=== PATIENT | female | born 1960 | race African-American/Black ===

== ENCOUNTER 2024-03-19 07:12 | Observation (INO) | payer MEDICAID, SELFPAY ==
--- NOTE | 2024-02-22 08:42 | EKG12_ITS ---
Test Reason : PRE OP Blood Pressure : / mmHG Vent. Rate : 076 BPM Atrial Rate : 076 BPM P-R Int : 180 ms QRS Dur : 078 ms QT Int : 382 ms P-R-T Axes : 054 028 050 degrees QTc Int : 429 ms Normal sinus rhythm Normal ECG Confirmed by GASTON CHOW, VIKI ([id number]), assistant film editor THOMPSON KELLEY ([id number]) on 02/22/2024 1:30:32 PM Referred By: Cholo Napier Confirmed By:VIKI FELDMAN MD
[2024-02-22 09:49] LABS: Absolute Lymphocyte Count 1.91 X10^3/uL (0.83-4.51); Absolute Neutrophil Count 4.3 X10^3/uL (2.0-7.7); Basophil# 0.01 X10^3/uL; Basophil% 0.2 % (0-1); Eosinophil# 0.04 X10^3/uL; Eosinophils% 0.6 % (0-5); Hematocrit 38.3 % (37-47); Hemoglobin 11.8 g/dL (12.0-15.0); Lymphocyte # 1.91 X10^3/ul (0.83-4.51); Lymphocyte % 28.8 % (19-41); Mean Corp Hgb Conc 30.8 g/dL (32-36); Mean Corpuscular Hgb 25.8 pg (27.0-32.0); Mean Corpuscular Volume 83.6 fL (81-99); Mean Platelet Vol. 7.9 fl (6.2-12.0); Monocyte# 0.33 X10^3/uL; NRBC Flagged by Analyzer 0 % (0-5); Neutrophil # 4.31 X10^3/uL (2.7-7.7); Neutrophil % 64.9 % (47-70); Platelet Count 305 K/mm3 (150-450); RBC Distribution Width CV 13.4 % (11.6-14.6); RBC Distribution Width SD 40.8 fl (35.1-43.9); Red Blood Count 4.58 M/mm3 (4.2-5.4); White Blood Count 6.6 K/mm3 (4.4-11.0)
[2024-02-22 10:26] LABS: Albumin, Serum 3.5 g/dL (3.2-5.0); Anion Gap 6 (5-15); BUN 11 mg/dL (7-18); BUN/Creat Ratio 13.5 RATIO (10-20); Calcium,Total 9.3 mg/dL (8.5-10.1); Chloride 105 mmol/L (98-107); Creatinine, Serum 0.81 mg/dL (0.55-1.02); EST Glomerular Filtration Rate 76 mL/min (>60); Est Glom Filt Rate - Afr Amer 92 mL/min (>60); Glucose 92 mg/dL (74-106); Potassium 3.7 mmol/L (3.5-5.1); Sodium Level 136 mmol/L (136-145)
[2024-02-22 10:30] LABS: Hemoglobin A1c 5.7 % (3.8-5.6)
[2024-02-22 15:45] LABS: Magnesium 1.7 mg/dL (1.6-2.6); Thyroid Stim Hormone (TSH) 2.22 uIU/mL (0.358-3.74)
--- NOTE | 2024-03-13 15:14 | HP.PCM_ITS ---
History and Physical History and Physical Patient Name: Maame Munson? : 1960From:? WILMER SALAZAR PA-C DATE OF PRE-OPERATIVE EXAM: 03/12/2024 DATE OF SURGERY:? 03/19/2024 SCHEDULED PROCEDURE:? Direct anterior left total hip arthroplasty HISTORY OF PRESENT ILLNESS: Preoperative history and physical exam was performed on March 12, 2024.? This is a 63-year-old female who has been having ongoing pain for the past couple years with her right hip.? The pain has been progressively been getting worse.? Pain can reach 8/10 with activities.? Her pain has been constant and aching.? Pain is increased with going up and down stairs, sitting, walking.? She has difficulty with activities of daily living including getting dressed, housework, shopping and leisure activities.? Pain does awaken her at night.? She does have start up pain.? Patient states she is unable to walk more than 50 yards without having significant pain.? Patient has been using a cane for ambulatory assistance for the past 7 months.? Patient has attempted conservative measures including physical therapy which worsened her pain.? She is also attempted previous cortical steroid injections for the left hip without relief.? Patient has used [id number] medications including Advil, Tylenol and muscle relaxers with minimal relief.? After failing conservative measures and discussing all treatment options with Dr. Cholo Napier, the patient does wish to proceed with a direct anterior right total hip arthroplasty.? Patient has obtain surgical clearance from the primary care provider Jena Johnson.? Patient denies past history of DVT or pulmonary embolism.? Patient has medical history pertinent for gastroesophageal reflux disease, hypertension, thyroid disease, prediabetes with recent A1c 5.7, asthma, vitamin D deficiency.? Patient denies any recent chest pain, shortened breath, fevers chills or recent infections.? Patient with recent lab work did reveal anemia and she was started on our anemia protocol with ferrous sulfate and folic acid. ? REVIEW OF SYSTEMS: Review Of Systems: Constitutional: Denies change in appetite, fever and weight change. Cardiovasular: Denies chest pain, heart murmur and irregular heartbeat. Respiratory: Denies cough, pneumonia, shortness of breath, tuberculosis and wheezing. Gastrointestinal: Denies constipation, diarrhea, heartburn, nausea, rectal itching, bloody stools and vomiting. Genitourinary: Denies female genital problems. Denies urinary symptoms. Musculoskeletal: Denies leg swelling, pain, trouble walking and weakness. Skin: Denies Raynaud's, history of shingles and tattoo. Neurological: Denies ambulatory dysfunction, dizziness, numbness/tingling and tremor. Psychiatric: Denies anxiety, insomnia and stress. Hematologic/Lymphatic: Denies anemia, bleeding/bruising tendency and past transfusion. Reviewed, no changes. PAST MEDICAL HISTORY: Advance Care Plan: No Advance Directives Effective Date: 11/10/2023 Past Medical History: Medical Problems: Acid Reflux, High Blood Pressure, Thyroid Disease Diabetes - PRE Asthma, Vitamin D Deficiency Accidents: None Surgical Hx: Hysterectomy - (1998) Hip Replacement RT - (03/19/2024) SAW Anesthesia Complications: None Assistive Devices: Cane, Glasses Reviewed and updated. SOCIAL HISTORY: Social History: Marital: Single.Occupation: Unemployed.Work Status: Not Working Currently.Hand Dominance: Right-handed. Personal Habits:? Cigarette Use: Never Smoked Cigarettes.Smokeless Tobacco: Never Used Smokeless Tobacco.E-Cigarette Use: Never used.Alcohol: Denies use.Dr ug Use: Denies Use.Enjoy Exercising: Never Exercises. Reviewed, no changes. VITALS: Ht: 62 Wt: 228lb 8oz Wt k.648 BMI: 41.8 BP: 128/80 Pulse: 86 Resp: 14 T: 97.8 T: 36.6C Pain Level: 6 O2SatR: 97 ALLERGIES: Latex Percocet Morphine - Rash MEDICATIONS: Aspirin 81 Low Dose 81 mg 1 by mouth every day, Bystolic 10 mg 1 by mouth every day, Trulicity 3 mg/0.5ml once weekly, Levothyroxine Sodium 50 mcg 1 tablet daily, Diltiazem HCL ER 240 mg one capsule daily, Losartan Potassium 100 mg 1 by mouth every day, Metformin HCL ER (Mod) 500 mg 4 capsules daily, Vitamin D 1.25 MG? weekly, Loratadine 10 mg 1 time daily, Omeprazole 40 mg 1 by mouth every day PRE-OP EXAM: General appearance:NORMAL? Other: Eyes: Conjunctivae and lids: NORMAL? Pupils: ERR Ears, Nose, Mouth, and Throat: NORMAL? Other: Inspection of lips, teeth and gums: NORMAL?? Other: Neck: Examination of neck: no masses noted. Respiratory: Assessment of respiratory effort: NORMAL?? Other: ? Auscultation of lungs: clear to auscultation no wheezes, rhonchi or rales. Cardiovascular:? Auscultation of heart: regular rate and rhythm, no murmurs, gallops or rubs. PHYSICAL EXAMINATION: Patient does walk with a antalgic gait.? She is currently using a cane.? Patient's right hip is without erythema or signs of infection.? She has tenderness to palpation of the greater trochanteric region.? Range of motion: Hip flexion 60, internal rotation neutral, external rotation 10.? She has increased pain with all range of motion.? 4/5 hip strength secondary to pain.? Sensation intact to light touch. IMAGING STUDIES: Previous x-rays and CT scan were consistent with joint space narrowing, subchondral sclerosis, osteophyte formation consistent with severe stage IV opna-st-[id number] erosive osteoarthritis.? CT scan was also consistent with numerous subchondral cysts in the femoral head and acetabulum. IMPRESSION: 1.? Severe right hip osteoarthritis 2.? Hypertension 3.? Gastroesophageal reflux disease 4.? Thyroid disease 5.? Prediabetic: A1c 5.7 6.? Asthma 7.? Vitamin D deficiency 8.? Anemia 9.? Morbid obesity with BMI 41.8 PLAN: Dr. Cholo Napier did discuss and review with the patient all treatment options including surgical versus nonsurgical options.? Patient does wish to proceed with the above-stated procedure.? Potential risks, benefits, and complications of the procedure were discussed in detail including but not limited to , infection, nerve and blood vessel damage, persistent pain, numbness, tingling, paresthesias, blood clot, pulmonary embolism, and requirement for possible further surgery.? The patient expressed full understanding and has no further questions for the doctor.? Patient does agree to proceed with the above-stated procedure and has signed the surgery consent form. POST-OP MEDICATION PLAN: Pain Medications:? Postoperative pain medication will be initiated by Dr. Cholo Napier in the hospital.? Patient does have allergy to Percocet and we will use hydrocodone/acetaminophen postoperatively.? I also advised the patient 2 weeks post-operative treatment with doxycycline due to the morbid obesity greater than 40.0.? I advised her on sensitivity to sunlight with this medication and should take appropriate precautions.? I also recommended ndgr-spg-yvuanyt probiotic.? Patient does have a walker that she will bring to the hospital.? She has also continued on our anemia protocol with ferrous sulfate and folic acid. DVT Prophylaxis:? Aspirin 81 mg twice daily for 4 weeks postoperatively.? Denies past history of DVT or pulmonary embolism This dictation was created using voice recognition software. Phonetic and/or grammatical errors may exist. ___? I have re-examined the patient.? There are no clinical changes since date of exam. ___? See progress notes for changes. ___? Dictated on admission Date: ? Time: Signature:
[2024-03-19] VITALS (16 sets, daily range): BP systolic 88–156; BP diastolic 46–90; PULSE 74–94; RESP 14–19; TEMP 36.3–36.6; O2SAT 93–100; BMI 40.7; BMI 40.8
[2024-03-19] MEDS: Acetaminophen 500 MG Tablet 1000 MG PO (06:53)
[2024-03-19] MEDS: Celecoxib 200 MG Capsule 400 MG PO (06:54)
[2024-03-19] MEDS: Gabapentin 600 MG Tablet PO (06:54)
--- NOTE | 2024-03-19 07:04 | PRE.ANES_ITS ---
ASA Classification* ASA Classification ASA Classification: 3 Assessment & Plan Anesthesia* Anesthesia Assessment Anesthesia Assessment: Discussed sedation and/or anesthesia options, risks, benefits, and alternatives with patient/parents/legal guardian/POA. Questions invited. The patient/parents/legal guardian/POA seems to understand and agrees to proceed with anesthesia plan. Reviewed the physical assessment, medical history, allergy history and patient home medications list prior to surgery/procedure/anesthetic and documented any changes. Performed airway and anesthesia risk assessments. Anesthesia Type Anesthesia Type: Spinal Anesthesia Focused Assessment* Temperature: 97.9 F Pulse Rate: 83 Blood Pressure: 129/62 Respiratory Rate: 16 Pulse Ox: 98 Airway Assessment Mouth opens: >3 cm Mallampati Score: II Focused Labs Anesthesia Preop lab: CBC WBC 6.6 K/mm3 (4.4-11.0) 02/22/24 09:10 RBC 4.58 M/mm3 (4.2-5.4) 02/22/24 09:10 Hgb 11.8 g/dL (12.0-15.0) L 02/22/24 09:10 Hct 38.3 % (37-47) 02/22/24 09:10 Plt Count 305 K/mm3 (150-450) 02/22/24 09:10 CHEMISTRY Potassium 3.7 mmol/L (3.5-5.1) 02/22/24 09:10 Sodium 136 mmol/L (136-145) 02/22/24 09:10 Magnesium 1.7 mg/dL (1.6-2.6) 02/22/24 09:10 BUN 11 mg/dL (7-18) 02/22/24 09:10 Creatinine 0.81 mg/dL (0.55-1.02) 02/22/24 09:10 Glucose 92 mg/dL (74-106) 02/22/24 09:10 TSH 2.22 uIU/mL (0.358-3.74) 02/22/24 09:10 COAG Pre-Assessment Diagnosis/Proposed Procedure Planned Operative Procedure(s): DIRECT ANTERIOR RIGHT TOTAL HIP ARTHROPLASTY Anesthesia History Anesthesia History - learning support specialist: Anesthesia History - learning support specialist Hx Hospitalization No 02/21/24 10:31 Any Problems With Anesthesia No 02/21/24 10:31 Cholinesterase deficiency No 02/21/24 10:31 You/Your Family Experience No 02/21/24 10:31 fever (hyperthermia) with Relationship Recent Exposure to Contagious No 03/19/24 06:47 Disease Does patient have nerve No 02/21/24 10:31 stimulator Patient instructed to have device shut off --Does patient have Pacemaker No 03/19/24 06:50 or ICD? When Was Last Pacemaker Check QUESTION #4 FULL TEXT: You/Your Family Experience fever (hyperthermia) with Anesthesia Last Oral Intake Last Oral intake: Last Oral Intake NPO since 04:30 03/19/24 06:50 Meds taken in AM with sips of Yes 03/19/24 06:50 water? Meds patient instructed to take am of surgery PONV PONV - learning support specialist: PONV - learning support specialist Female Yes 02/21/24 10:31 HX of Motion Sickness No 02/21/24 10:31 HX of N/V After Surgery No 02/21/24 10:31 Non-Smoker Yes 02/21/24 10:31 Duration of Surgery greater Yes 02/21/24 10:31 than 60 minutes Number of Risk Factors 3 02/21/24 10:31 PONV Score Moderate Risk 02/21/24 10:31 Height & Weight Height & Weight: Anesthesia: Height & Weight Height 5 ft 3 in 03/19/24 06:50 Weight: 104.417 kg 03/19/24 06:50 Body Mass Index (BMI) 40.7 03/19/24 06:50 Respiratory Assessment Respiratory Assessment - learning support specialist: Respiratory Tract Infection Hx - learning support specialist Hx Respiratory Tract Infection No 02/21/24 10:31 STOP Sleep Apnea STOP Sleep Apnea - learning support specialist: STOP Sleep Apnea - learning support specialist Hx Hypertension Yes: CONTROLLED WITH MED 02/21/24 10:31 Hx Sleep Apnea Yes 02/21/24 10:31 CPAP Yes: NON COMPLIANT 02/21/24 10:31 BIPAP No 02/21/24 10:31 Do you snore loudly (louder than talking or can be heard Do you often feel tired/ fatigued/ sleepy during daytime? Has anyone observed you stop breathing during sleep? STOP Results Positive 02/21/24 10:31 QUESTION #5 FULL TEXT : Do you snore loudly (louder than talking or can be heard through closed doors)? Tobacco Use History Tobacco Use History - learning support specialist: Tobacco Use History - learning support specialist Tobacco Use Smoking Status Never smoker 02/21/24 10:31 Hx Tobacco Use No 02/21/24 10:31 Years Smoking Packs Smoked per Day Smoking Cessation Date was within the last 15 years Hx Smoking Cessation Date Hx Smoking Cessation Counseling Hematologic Medial History Hematologic Hx - learning support specialist: Hematologic Medical Hx - revenue manager Hx of Blood Transfusion No 02/21/24 10:31 Hx of Transfusion in last 3 No 02/21/24 10:31 Months Date of Last Transfusion (if within last 3 months) Ever experience any problems No 02/21/24 10:31 with transfusion(s)? Specify any problems Hx of Preganancy in last 3 N/A 02/21/24 10:31 Months Nurse Filling Out Transfusion NBUCHER 02/21/24 10:31 & Questions: Date: 02/21/24 02/21/24 10:31 Time: 10:33 02/21/24 10:31 Patient unable to answer at this time (ie. confused, unrespo /Reproduction History /Reproductive History - learning support specialist: /Reproductive Hx- learning support specialist Hx Now No 02/21/24 10:31 Gestational Age (in weeks): EDC: Hx Hx Para Hx Section SAB No 02/21/24 10:31 Active Medications Active Medications: Current Medications Generic Name Dose Route Start Last Admin Trade Name Freq PRN Reason Stop Dose Admin Acetaminophen 1,000 mg 03/19/24 08:00 03/19/24 06:53 Acetaminophen 500 Mg Tablet PO 03/19/24 08:01 1,000 mg X1 ONE Administration Celecoxib 400 mg 03/19/24 08:00 03/19/24 06:54 Celecoxib 200 Mg Capsule PO 03/19/24 08:01 400 mg X1 ONE Administration Sodium Chloride 78.4 ml/ ml 03/19/24 08:00 Ropivacaine 200 mg/ IV 03/19/24 08:01 Epinephrine HCl 0.6 mg/ X1 ONE Ketorolac Tromethamine 30 mg Dexamethasone Sodium Phosphate 10 mg 03/19/24 08:00 Dexamethasone 10 Mg/Ml Vial IV 03/19/24 08:01 X1 ONE Gabapentin 600 mg 03/19/24 08:00 03/19/24 06:54 Gabapentin 600 Mg Tablet PO 03/19/24 08:01 600 mg X1 ONE Administration Lactated Ringer's 1,000 mls @ 999 mls/hr 03/19/24 08:00 IV 03/19/24 09:00 .Q1H1M PEDRO Cefazolin Sodium 2 gm/ Sodium 110 mls @ 150 mls/hr 03/19/24 08:00 Chloride IV 03/19/24 08:43 PREOP ONE Tranexamic Acid 1,000 mg/ 110 mls @ 660 mls/hr 03/19/24 08:00 Sodium Chloride IV 03/19/24 08:09 X1 ONE Tranexamic Acid 1,000 mg/ 110 mls @ 660 mls/hr 03/19/24 08:00 Sodium Chloride IV 03/19/24 08:09 X1 ONE Lactated Ringer's 1,000 mls @ 999 mls/hr 03/19/24 08:00 IV 03/19/24 09:00 .Q1H1M PEDRO Lidocaine HCl/Dextrose 2,000 mg in 250 mls @ 31.2 mls/hr 03/19/24 08:00 Lidocaine 2 Gm/250 Ml IV .Q8H1M PEDRO Magnesium Sulfate 2 gm/ 104 mls @ 208 mls/hr 03/19/24 08:00 Dextrose IV 03/19/24 08:29 X1 ONE Insulin Human Lispro 1 - 6 unit 03/19/24 08:00 Insulin Lispro 100 Unit/Ml Insuln.Pen SC Q4H PRN PRN BG>/= 180, SEE PROTOCOL Protocol PFSH Medical History Wears glasses Diabetes Thyroid disease Ambulates with cane Arthritis History of hiatal hernia Dietary restriction CPAP (continuous positive airway pressure) dependence Sleep apnea Asthma GERD (gastroesophageal reflux disease) Non-smoker History of stress test Home Medications ?Medication ?Instructions ?Recorded ?Last Taken ?Type aspirin 81 mg capsule 81 mg PO DAILY 02/21/24 02/13/24 History diltiazem HCl 120 mg capsule,24 240 mg PO QDAY 02/21/24 03/19/24 04:30 History hr,extended release dulaglutide 1.5 mg/0.5 mL 1.5 mg subcut WE DIABETES 02/21/24 03/14/24 History subcutaneous pen injector ([facility]) ergocalciferol (vitamin D2) 1,250 1,250 mcg PO TU 02/21/24 03/13/24 History mcg (50,000 unit) capsule (Vitamin D2) levothyroxine 50 mcg capsule 50 mcg PO DAILY 02/21/24 03/19/24 04:30 History loratadine 10 mg tablet 10 mg PO DAILY 02/21/24 03/18/24 10:00 History losartan 100 mg tablet 100 mg PO DAILY 02/21/24 03/19/24 04:30 History metformin 500 mg tablet,extended 2,000 mg PO DAILY 02/21/24 03/18/24 10:00 History release 24 hr montelukast 10 mg tablet 10 mg PO QHS 02/21/24 03/18/24 History nebivolol 10 mg tablet (Bystolic) 10 mg PO DAILY 02/21/24 03/19/24 04:30 History omeprazole 40 mg capsule,delayed 40 mg PO DAILY 02/21/24 03/19/24 04:30 History release Allergy/AdvReac Type Severity Reaction Status Date / Time latex Allergy Intermediate Rash Verified 03/19/24 06:43 morphine Allergy Intermediate Rash Verified 03/19/24 06:43 oxycodone (From Percocet) Allergy Intermediate RASH Verified 02/21/24 10:20 Surgical History History of esophagogastroduodenoscopy (EGD) History of colonoscopy History of tonsillectomy (~1966) History of cholecystectomy (~1989) History of hysterectomy (~1998) Social History Smoking Status: Never smoker Review of Systems (Anesthesia) ROS Narrative System reviewed and no additional complaints, except as documented.
[2024-03-19] MEDS: Lactated Ringers 1,000 ML 999 ML IV ×2 (07:07→10:34)
[2024-03-19] MEDS: Magnesium 2 GM for ERAS IV (07:08)
[2024-03-19] MEDS: Lactated Ringers 1,000 ML 15 ML IV (07:10)
[2024-03-19 07:46] LABS: Bedside Glucose 145 mg/dL (74-106)
[2024-03-19] MEDS: Cefazolin 2 GM in 0.9% Normal Saline (100mL Bag) 100 ML IV (08:00)
--- NOTE | 2024-03-19 08:00 | FEM._PTH ---
PATIENT: JOSE DENG LOC: MS3 U#:[id number] AGE/SX: 63/F ROOM: WA316 RE03/19/[address]: Dr. Cholo Napier MD : 1960 BED: 1 DIS: 03/20/2024 SPEC #: [id number] RECD: 03/19/24 10:15 STATUS: NOMAN BENITO #: [id number] SLIME: 03/19/24 08:[address]: Cholo Napier DEPT: SURGICAL PATHOLOGY RECD BY: Jeromy Christie ENTERED: 03/19/24 11:15 SP TYPE: FEM HEAD OTHR DR: MD Jena Jimenez, AERODYNAMICIST-C Tissues: Hip, NOS Procedures: Decalcification bone/plaque Surgery Specimen Level IV HEADER OPERATION: ERAS, direct anterior total hip arthroplasty PRE-OP DIAGNOSIS: Severe right hip osteoarthritis TISSUE SUBMITTED: Right femoral head bone and tissue MICROSCOPIC DIAGNOSIS Right hip bone and soft tissue, total hip replacement/resection: Femoral head with degenerative osteoarthritic changes. Fragments of dense fibroconnective tissue and fibroadipose tissue. MIL: 03/22/2024 MICROSCOPIC DESCRIPTION Slides are reviewed. GROSS DESCRIPTION Received is one container labeled with the patient's name and designated bone and soft tissue right hip. The femoral head measures 4.0 x 4.0 x 4.0 cm. Also present in the container is a piece of bone consistent with portion of femoral neck measuring 4.5 x 3.0 x 1.0cm. The articular surface displays prominent osteophyte formation, eburnation and bone erosion. Also present in the specimen container are multiple irregular fragments of bone reamings and pink-yellow soft tissue measuring in aggregate 9.0 x 9.0 x 2.0 cm. Life Underwriter sections are submitted in two cassettes as follows: 1 - soft tissue, 2 - femoral head after decalcification. MIL/ 03/19/2024 TC:5 CPT: 00984, 12835
[2024-03-19] MEDS: TXA 1000mg in NS100 100ml (IVPB at Incision) 660 MG IV (08:19)
[2024-03-19] MEDS: dexAMETHasone 10 MG/ML Vial IV (08:22)
--- NOTE | 2024-03-19 08:50 | RAD_ITS ---
HISTORY: PAIN. TECHNIQUE: 3 spot images. COMPARISON: CR same day. FINDINGS: OSSEOUS STRUCTURES: Right hip arthroplasty identified. FLUOROSCOPY TIME: 7.2 seconds. RADIATION DOSE: 1.05 mGy. RAD/Hip 1 view with Pelvis IMPRESSION: Image guidance for right hip arthroplasty. Electronically Signed: Maryann Kaur MD at 8:40 EDT ,
[2024-03-19] MEDS: Joint Pain Solution (NO MORPHINE) 100 ML IV (09:05)
--- NOTE | 2024-03-19 09:10 | PCM.OPRPT ---
Report of Operation Date of Procedure: 03/19/24 Pre-Operative Diagnosis: Right hip primary osteoarthritis Post-Operative Diagnosis: Right hip primary osteoarthritis Surgery/Procedure Performed:: Right minimally invasive direct anterior total hip replacement Description of Surgical Findings:: Stable hip with equal leg length Surgeon: Cholo Napier senior qa tester: Zelalem Crane Type of Anesthesia: Spinal Anesthesiologist: Eric Jacob Special Medications: 2 g Ancef, 1 g TXA at incision, 1 g TXA closure, 10 mg Decadron, joint cocktail (5 mg Duramorph, 30 mL of 0.5% Ropivicaine, 1000 units of epinephrine, 30 mg of Toradol) Specimen's removed: Bony cuts Estimated Blood Loss (mL): 200 Fluids Replaced: 1200 ml Description of Procedure: Components used: 1. Insignia Ayush femoral stem size 3 HO 2. Corning trident 2 acetabular shell size 48 mm 3. Ayush X3 polyethylene D 4. Corning Biolox delta 36mm, -2.5mm femoral head Brief history operative indications: 63 yo f who failed conservative measures for their hip osteoarthritis. X-rays were consistent with osteoarthritis including joint space narrowing, osteophyte formation and subchondral cysts. Total hip replacement was discussed with the patient with risks and benefits including but not limited to blood loss, DVTs, PEs, neurovascular damage, dislocation, general risks of anesthesia including loss of life. Patient demonstrated an understanding medical clearance is obtained the patient was consented for surgery. Procedure: On the date of procedure the patient's right hip was marked in the preoperative area. Patient was then taken back to the operating room where anesthesia assumed control of the C-spine and airway and administered anesthetic. Patient was transferred to the operating table and placed in the supine position. The hips were placed at the break of the bed and a sacral bump was placed. The right lower extremity was then prepped out in a sterile fashion using chlorhexidine while the surgeon scrubbed. The PA was vital in the positioning of the patient. Upon reentering the room the right lower extremity was draped in the standard orthopedic fashion and the incision was marked. A timeout was called and everyone agreed upon the side, the site, the procedure be performed, antibody given, and patient's identity. At this time incision was made through skin, subcutaneous tissue, and fat down to fascia. The fascia was then incised and the TFL was retracted laterally. A retractor was placed on the lateral border of the femoral neck. Attention was directed to the inferior portion of the approach and all crossing vessels were identified and appropriately coagulated. A retractor was then placed on the medial portion of the femoral neck. The anterior capsule was then cleared of all soft tissue and then H shaped capsulotomy was made. The retractors were then placed inside the capsule. The femoral neck was identified and a cleanup cut was made. At this time a power corkscrew was used to remove the femoral head. Attention was then turned toward the acetabulum where the soft tissues were appropriately retracted and the acetabulum was sequentially reamed to 48 mm. A 48 mm cup was then selected and impacted into place. Acetabular liner was impacted into place and locking mechanism was verified. The position of the acetabular cup was then verified under live fluoroscopy. Attention was then turned to the femur. Soft tissue releases on the medial and lateral femoral neck were appropriately done, the leg was externally rotated and lateralized. A Hamm retractor was placed medially and proximally to the greater trochanter this allowed appropriate visualization and exposure of the femoral canal. Rongeour was then used to remove excess lateral bone. A canal finder and entry broach were used to open the proximal canal. Once we verified we were down the femoral canal we subsequently broached up to a size 3 femur. The appropriate neck was placed in the previously selected head was trialed with a -2.5 mm neck. Traction was pulled and the hip was reduced with internal rotation. Once it was appropriately reduced and stability was checked. There was minimal shuck, equal leg lengths and appropriate stability with hyperextension and external rotation as well as with 90? flexion and internal rotation. Fluoroscopy was then also used to verify the position of the components and leg lengths using the contralateral side for comparison. The trial components were then dislocated the proximal femur was again exposed and the components were removed from the wound. The final components were verified and opened. The wound was copiously irrigated out with normal saline. The acetabulum was checked for any residual debris. The final components were placed and impacted. Traction and internal rotation were again used to reduce the hip. After adequate reduction the hip remained stable with appropriate leg lengths. The final components were once again checked with live fluoroscopy and were found to be satisfactory. The wound was then copiously irrigated with normal saline once more, and hemostasis was obtained. Closure was then done using #1 Vicryl runner to close the fascia. A 2-0 vicryl interuppted sutures were used to close the subcutaneous skin. A 3-0 Monocryl and Steri-Strips were used for final skin closure. A Silverlon dressing was placed. Patient was awakened by anesthesia and transferred to the [facility]. Patient was then transferred to the PACU for recovery. During the course of the procedure the physician division traffic superintendent (PE) played a vital role. Their intimate knowledge of my steps in the procedure aided in safe and expedient completion of the procedure. The PE played a vital rolls in positioning particularly in obtaining the appropriate positioning of the sacral bump. The PE was also vital in the retraction of soft tissues during the exposure and especially the femoral work as this is a vital part of the procedure to prevent complications and fractures. The PE was also vital and protecting soft tissues during times of bony cuts and reaming. He also played a vital role in closure with my direct supervision. The PE was also important during reduction and dislocation of the joint and trials intraoperatively. Postoperative plan: Patient will get 24 hours postop antibiotics. Patient will get in-house physical therapy and will be weight-bear as tolerated. Patient will follow up in office in 2 weeks for a wound check and x-rays. Aspirin 81 mg twice daily. Patient be placed on doxycycline extended postop antibiotics for 2 weeks as she has a BMI greater than 40. Complications No intraoperative complications Admit VTE Documentation VTE Present on Admission: No VTE Mechan Device Prophylaxis: SCD's and Thigh High ESTEFANIA Hose VTE Pharm Prophylaxis ordered?: Yes
[2024-03-19] MEDS: TXA 1000mg in NS100 100ml (IVPB at Closure) 660 MG IV (09:11)
--- NOTE | 2024-03-19 10:02 | RAD_ITS ---
STUDY: X-RAY - PELVIS AND RIGHT HIP REASON FOR EXAM: Female, 63 years old. Post Op -- AP both hips on single ashley/lateral of op hip PACU TECHNIQUE: 2 views of the pelvis and hip. COMPARISON: None. FINDINGS: The patient is status post right total hip replacement. There is good alignment. Postoperative soft tissue changes are seen. RAD/Hip Min 2 Views (Portable) IMPRESSION: Status post right total hip replacement. There is good alignment. Postoperative soft tissue changes. Electronically Signed: Rigo Mueller MD at 10:36 EDT ,
--- NOTE | 2024-03-19 10:54 | PCM.POST.ANE ---
Anesthesia: Postop Eval I Current Vital Signs Temperature: 97.3 F Pulse Rate: 78 Blood Pressure: 93/80 Respiratory Rate: 16 Pulse Ox: 93 Oxygen Delivery Method: Room Air Assessment Airway patent: Yes Spontaneous unlabored respirations: Yes Mental status: Awake and Calm nausea: No Vomiting: No Anesthesia Complication: No Fluid Hydration Crystalloid volume administer (ml): 1,800 Total IV fluid infused: 1,800 Progress Note Anesthesia document: Postop Eval 1 completed: Yes
--- NOTE | 2024-03-19 10:56 | POSTOPAN2_ITS ---
Anesthesia Postop Eval I Sum Postop Eval Completion status Anesthesia document: Postop Eval 1 completed: Yes Anesthesia Postop Eval I Summary Anesthesia Postop Eval I Summary: Anesthesia Postop Eval I: Assessment Summary Airway patent Yes 03/19/24 10:55 REHABILITATION SERVICES DIRECTOR.MDOT Spontaneous unlabored Yes 03/19/24 10:55 REHABILITATION SERVICES DIRECTOR.MDOT respirations Mental status Awake,Calm 03/19/24 10:55 REHABILITATION SERVICES DIRECTOR.MDOT nausea No 03/19/24 10:55 REHABILITATION SERVICES DIRECTOR.MDOT Vomiting No 03/19/24 10:55 REHABILITATION SERVICES DIRECTOR.MDOT Anesthesia Postop Eval I: Fluid Summary Crystalloid volume administer 1,800 03/19/24 10:55 REHABILITATION SERVICES DIRECTOR.MDOT (ml) Colloids volume administered ( ml) Blood Product volume administered (ml) Total IV fluid infused 1,800 03/19/24 10:55 REHABILITATION SERVICES DIRECTOR.MDOT Anesthesia Postop Eval I: Summary Notes Anesthesia Complication No 03/19/24 10:55 REHABILITATION SERVICES DIRECTOR.MDOT Anesthesia Complication Comment: Post-operative progress note Anesthesia: Postop Eval II Evaluation Mental status: Awake and Calm Pain Level: 1 nausea: No Vomiting: No Complications Anesthesia Complication: No
--- NOTE | 2024-03-19 10:56 | PCM.POSTANE2 ---
Anesthesia Postop Eval I Sum Postop Eval Completion status Anesthesia document: Postop Eval 1 completed: Yes Anesthesia Postop Eval I Summary Anesthesia Postop Eval I Summary: Anesthesia Postop Eval I: Assessment Summary Airway patent Yes 03/19/24 10:55 GIMP [email or web address] Spontaneous unlabored Yes 03/19/24 10:55 GIMP [email or web address] respirations Mental status Awake,Calm 03/19/24 10:55 GIMP [email or web address] nausea No 03/19/24 10:55 GIMP [email or web address].MDOT Vomiting No 03/19/24 10:55 GIMP [email or web address].MDOT Anesthesia Postop Eval I: Fluid Summary Crystalloid volume administer 1,800 03/19/24 10:55 GIMP [email or web address].MDOT (ml) Colloids volume administered ( ml) Blood Product volume administered (ml) Total IV fluid infused 1,800 03/19/24 10:55 GIMP [email or web address].MDOT Anesthesia Postop Eval I: Summary Notes Anesthesia Complication No 03/19/24 10:55 GIMP [email or web address].MDOT Anesthesia Complication Comment: Post-operative progress note Anesthesia: Postop Eval II Evaluation Mental status: Awake and Calm Pain Level: 1 nausea: No Vomiting: No Complications Anesthesia Complication: No
[2024-03-19] MEDS: Senna/Docusate Sodium 1 Tablet 2 TABLET PO ×2 (12:22→21:26)
[2024-03-19] MEDS: Doxycycline 100 MG CAPSULE PO ×2 (12:22→21:31)
[2024-03-19] MEDS: Loratadine 10 MG Tablet PO (12:22)
[2024-03-19] MEDS: Ensure Surgery 237 ML LIQUID PO ×2 (12:23→16:44)
[2024-03-19] MEDS: Aspirin 81 MG TAB.CHEW PO ×2 (12:23→21:26)
--- NOTE | 2024-03-19 14:30 | PN.HOSP_ITS ---
Reason for Visit Reason for Visit: Diagnoses Encounter for other preprocedural examination (03/19/24) Subjective Subjective Consult requested by Dr. Napier for postoperative medical management. Feeling fine postoperative. Objective Data Objective Data Vital Signs: Vital Signs Temp Pulse Resp BP Pulse Ox O2 Del Method O2 Flow Rate 36.6 C 91 18 135/77 H 97 Room Air 4 03/19/24 13:12 03/19/24 13:12 03/19/24 13:12 03/19/24 13:12 03/19/24 13:12 03/19/24 13:12 03/19/24 11:49 Oxygen Flow Rate (L/min) 4 Oxygen Delivery Method Room Air Weight: 104.417 kg Body Mass Index (BMI) 40.8 Intake & Output: Intake and Output for Last 24 Hours 03/17/24 03/18/24 03/19/24 23:59 23:59 23:59 Intake Total 3434 / 3434 Balance 3434 / 3434 Lab / Micro Data 02/22/24 09:10 02/22/24 09:10 Labs: Laboratory Results - last 24 hr 03/19/24 06:41: POC Glucose 145 H Micro: Microbiology 02/22/24 09:10 Swab (Method) Nasal Screen MRSA/MSSA - Final Radiography Diagnostic Testing: Radiology Impression Hip X-Ray 03/19/24 10:02 IMPRESSION: Status post right total hip replacement. There is good alignment. Postoperative soft tissue changes. Electronically Signed: Rigo Mueller MD at 10:36 EDT , Physical Exam Const alert and no apparent distress HEENT head/scalp atraumatic and moist oral mucous membranes Resp normal respiratory effort, no retractions, no use of accessory muscles and clear to auscultation bilaterally Cardio regular rate, regular rhythm, S1 normal heart sound and S2 normal heart sound GI normal to inspection, nondistended, normoactive bowel sounds, soft to palpation, non-tender and non-distended Extremity normal to inspection, full ROM and no clubbing, cyanosis or edema Neuro Sensorium / Orientation: awake and alert Assessment & Plan Assessment/Plan (1) Status post right hip replacement: PLAN: Plan Status post right hip replacement * Performed March 19. * Management per orthopedics Hypertension: Stable. Continue losartan Hypothyroidism: Stable continue levothyroxine Prediabetes: A1c of 5.7. On metformin. Obesity class III: Complicates care and recovery. Thank you for the consult. Patient very medically stable at this point in time. No active medical issues. The hospitalist service will sign off. Please contact if any new issues arise. Charges/Coding Visit Charges Office Visits / Consults: [id number] OP Consult L2
[2024-03-19] MEDS: Cefazolin 1 GM/50 ML BAG IV ×2 (15:20→22:02)
[2024-03-19] MEDS: Montelukast 10 MG Tablet PO (21:30)
[2024-03-19] MEDS: 0.9% Saline Lock 10 ML Syringe IV (21:32)
[2024-03-19] MEDS: Ketorolac 15 MG/ML Vial IV (21:34)
[2024-03-20 03:12] VITALS: BP 138/74; PULSE 87; RESP 16; TEMP 36.6; O2SAT 96
[2024-03-20] MEDS: Levothyroxine 50 MCG Tablet PO (05:56)
[2024-03-20 06:27] LABS: Hematocrit 32.5 % (37-47); Hemoglobin 10.5 g/dL (12.0-15.0); Mean Corp Hgb Conc 32.3 g/dL (32-36); Mean Corpuscular Hgb 26.5 pg (27.0-32.0); Mean Corpuscular Volume 82.1 fL (81-99); Mean Platelet Vol. 8.6 fl (6.2-12.0); Platelet Count 261 K/mm3 (150-450); RBC Distribution Width CV 13.1 % (11.6-14.6); RBC Distribution Width SD 38.7 fl (35.1-43.9); Red Blood Count 3.96 M/mm3 (4.2-5.4); White Blood Count 13.1 K/mm3 (4.4-11.0)
[2024-03-20 06:43] VITALS: BP 143/91; PULSE 95; RESP 16; TEMP 36.7; O2SAT 98
--- NOTE | 2024-03-20 07:17 | PN.ORTHO_ITS ---
Subjective Subjective The patient was sitting in bed upon examination. Patient denies any chest pain, shortness of breath, dizziness, lightheadedness, nausea or vomiting, or calf pain. Pain is controlled on medications. No adverse overnight events. Patient has been up walking. She has been using the restroom. Patient states her right leg feels very heavy and she has thigh soreness. The plan is for patient to go home today. She was preoperatively started on our anemia protocol. Patient has the ferrous sulfate and folic acid at home. Patient also states that she has a follow-up with her primary care physician in approximately 4 weeks. Objective Data Objective Data Vital Signs: Vital Signs Temp Pulse Resp BP Pulse Ox O2 Del Method O2 Flow Rate 98.1 F 95 16 143/91 H 98 Room Air 4 03/20/24 06:43 03/20/24 06:43 03/20/24 06:43 03/20/24 06:43 03/20/24 06:43 03/20/24 06:43 03/19/24 11:49 Oxygen Flow Rate (L/min) 4 Oxygen Delivery Method Room Air Weight: 104.417 kg Body Mass Index (BMI) 40.8 Intake & Output: Intake and Output for Last 24 Hours 03/18/24 03/19/24 03/20/24 23:59 23:59 23:59 Intake Total 3534 / 3534 Balance 3534 / 3534 Lab / Micro Data 03/20/24 05:55 02/22/24 09:10 Labs: Laboratory Results - last 24 hr 03/19/24 06:41: POC Glucose 145 H 03/20/24 05:55: WBC 13.1 H, RBC 3.96 L, Hgb 10.5 L, Hct 32.5 L, MCV 82.1, MCH 26.5 L, MCHC 32.3, RDW Std Deviation 38.7, RDW Coeff of Rogers 13.1, Plt Count 261, MPV 8.6 Micro: Microbiology 02/22/24 09:10 Swab (Method) Nasal Screen MRSA/MSSA - Final Radiography Diagnostic Testing: Radiology Impression Hip X-Ray 03/19/24 10:02 IMPRESSION: Status post right total hip replacement. There is good alignment. Postoperative soft tissue changes. Electronically Signed: Rigo Mueller MD at 10:36 EDT , Physical Exam Narrative Vital signs stable and afebrile. Right thigh is soft and supple. She has tenderness to palpation right thigh SCDs and ESTEFANIA hose are in place bilaterally Patient is able to plantarflex and dorsiflex actively. Sensation is intact to light touch to saphenous, sural, superficial and deep peroneal, and tibial distribution. Dressing is clean dry and intact. Negative Homans bilaterally, negative signs and symptoms of DVT. Const alert, oriented x3 and no apparent distress Assessment & Plan Assessment/Plan (1) Status post right hip replacement: PLAN: 1. S/P direct anterior right total hip arthroplasty POD #1 2. Continue Pain Medications: Hydrocodone/acetaminophen and meloxicam. I did discuss in detail with the patient pain medication postoperatively. Patient is not to take more than 3000 mg of Tylenol in a 24-hour period. She did voiced understanding. Do not take any other nonsteroidal anti-inflammatories while using meloxicam/Mobic. 3. DVT Prophylaxis: Take 81 mg aspirin twice daily for 4 weeks postoperatively for DVT prophylaxis. Patient denies past history of DVT or pulmonary embolism. 4. PT/OT: Weightbearing as tolerated with walker 5. H & H: 10.5/32.5, asymptomatic. Preoperatively patient was found to have hemoglobin at 11.8 and was started on Dr. Cholo Napier's anemia protocol. She has been taking ferrous sulfate and folic acid. Patient is currently asymptomatic. Blood pressures are stable. Patient will continue on the ferrous sulfate and folic acid at home. She has scheduled follow-up with her primary care physician in approximately 4 weeks. I would defer to the primary care physician for any further treatment. This was discussed with the patient in detail. She voiced understanding. 6. Reactive leukocytosis: 13.1, Afebrile. Patient did receive Decadron intraoperatively. No clinical signs of infection. 7. Wound care: Patient currently has Mepilex dressing over the right hip incision. This is currently protecting the direct anterior incision. She does have large skin pannus that does come over the medial portion of the incision. It was discussed with the patient that once the Mepilex dressing is removed she will then use a sterile 4 x 4 gauze pad or ABD to place between the incision and skin pannus. We discussed the risk of skin breakdown and maceration if she does not do this. She voiced understanding. I would recommend she do this for the next 3 weeks. 8. Currently on doxycycline for 2 weeks postoperatively due to BMI greater than 40.0. I discussed with the patient potential side effects of doxycycline including sensitivity to the sunlight and increased risk of skin burn. Recommend patient take appropriate precautions. Also recommend patient to take probiotic while on the antibiotic. Patient voiced understanding agreement. 9. Encouraged Incentive Spirometry 10. Patient is aware of postoperative constipation that can occur from 1-3 days postoperatively. Will continue with senna 2 tablets twice daily until first bowel movement. Patient was advised if not having a bowel movement after day 3 she is to contact orthopedics so appropriate change can be made. Patient voiced understanding. 11. Continue postoperative medical treatment per medicine 12. Disposition: Plan will be for discharge home this afternoon as long as patient remains medically stable, tolerates therapy, and pain is adequately controlled. She has been doing well so far. Patient would like her prescriptions E scribed to [facility]. She has outpatient physical therapy established in [facility]. She will follow-up per postoperative instructions. She already has a follow-up scheduled with her primary care physician in 4 weeks. I would defer to that provider with any further care for labs and anemia treatment. Patient did voiced understanding with treatment plan. Upon discharge she will contact our office with any concerns or questions. I have reviewed the [place] Automated Rx Reporting System (OARRS) report for this patient for refill pattern and other prescriber involvement as part of the appropriate surveillance for the provision of acute and chronic controlled medications. The report was requested and reviewed on the date of this entry and was considered in the prescribing process. This dictation was created using voice recognition software. Phonetic and/or grammatical errors may exist.
[2024-03-20 07:19] LABS: Anion Gap 4 (5-15); BUN 14 mg/dL (7-18); Calcium,Total 9.2 mg/dL (8.5-10.1); Chloride 107 mmol/L (98-107); Creatinine, Serum 0.82 mg/dL (0.55-1.02); EST Glomerular Filtration Rate 75 mL/min (>60); Est Glom Filt Rate - Afr Amer 90 mL/min (>60); Estimated Creatinine Clearance 81.69 ml/min; Glucose 133 mg/dL (74-106); Potassium 4.3 mmol/L (3.5-5.1); Sodium Level 137 mmol/L (136-145)
--- NOTE | 2024-03-20 07:29 | DCINST_ITS ---
Discharge Instructions Diet Discharge Diet: No restrictions Activity Discharge Activity: May Not Drive (No driving for 6 weeks postoperatively. Must also be off all narcotics and able to walk 100 feet without the use of cane or walker.) May shower in (days): 1 (only if incision is dry and without drainage. Do NOT soak/submerge in tub/pool/hood/stream/hot tub.)) Ice area for (Minutes): 20 (Every 1-2 hours while awake[address] place barrier between ice and skin.) Weight Bearing Status: Weight bearing as tolerated Keep extremity elevated above heart level: Operative Extremity Dressing / Incision Call your doctor if your incision/area has: Continuous Slow Oozing, Sudden Increased Bleeding, Increased Pain/ Swelling, Increased Redness and Foul Smelling Discharge Call your doctor if you observe: Fever of 101 or Higher, Shortness of breath, Chest pain, Calf discomfort and Uncontrolled pain Remove Dressing in: 4 days (Okay to remove dressing on March 24, 2024) Additional Dressing/Incision Instructions:: Follow [facility] Post-op Instructions. Upon removal of right hip dressing on March 24, 2024, you will need to place a sterile 4 x 4 gauze pad to protect the incision for 3 weeks postoperatively for healing purposes. Once postoperative dressing has been removed, only use gentle soap and water over the incision. Do not use any ointments, Neosporin, salves, alcohol pads over the incision for 6 weeks postoperatively. Do not submerge underwater for 6 weeks postoperatively. Continue with ESTEFANIA hose/elastic stockings for 2 weeks postoperatively. May remove at nighttime but needs to be placed back on the leg during the day. Do NOT use alcohol with narcotic pain medication. Do NOT make important decisions while taking narcotic medication. If you have problems with taking your medication (rash, itching, nausea, etc.) call the office at once. Follow Up Care Test Results: Test results from this visit will be discussed in further detail at your follow- up appointment, if applicable. Discharge Plan Admission Admit Date/Time: 03/19/24 07:12 Attending Provider: Cholo Napier Primary Care Provider: Jena Johnson Consulting Providers: Cleve Angulo; Cleve Balderas Discharge Orders/Prescriptions Prescriptions: New aspirin 81 mg capsule 81 mg PO BID 30 Days Qty: 60 0RF Rx Instructions: Take 81 mg aspirin twice daily for 4 weeks postoperatively for DVT prophylaxis. After 4 weeks can then go back to normal 81 mg aspirin daily. doxycycline monohydrate 100 mg Capsule 100 mg PO BID 14 Days Qty: 28 0RF Rx Instructions: Take for 2 weeks postoperatively hydrocodone-acetaminophen 5-325 mg Tablet 2 tab PO Q6H PRN (Reason: pain) 7 Days Qty: 42 0RF Rx Instructions: Take 1-2 tablets every 6 hours as needed for pain ferrous sulfate [FeroSul] 325 mg (65 mg iron) Tablet 325 mg PO 1200,1700 Qty: 0 0RF Rx Instructions: Take until follow-up with primary care physician folic acid 1 mg Tablet 1 mg PO BREAKFAST Qty: 0 0RF Rx Instructions: Take until follow-up with primary care physician meloxicam 7.5 mg Tablet 7.5 mg PO BID 30 Days Qty: 60 0RF Rx Instructions: Do not take any other nonsteroidal anti-inflammatories while using meloxicam/Mobic. sennosides-docusate sodium [Stool Softener-Stimulant Laxat] 8.6-50 mg Tablet 2 tab PO BID Qty: 0 0RF Rx Instructions: Take until first bowel movement, then as needed Continued nebivolol [Bystolic] 10 mg tablet 10 mg PO DAILY Trulicity 1.5 mg/0.5 mL pen injector 1.5 mg subcut WE levothyroxine 50 mcg capsule 50 mcg PO DAILY diltiazem HCl 120 mg capsule,extended release 24 hr 240 mg PO QDAY losartan 100 mg tablet 100 mg PO DAILY metformin 500 mg tablet extended release 24 hr 2,000 mg PO DAILY ergocalciferol (vitamin D2) [Vitamin D2] 1,250 mcg (50,000 unit) capsule 1,250 mcg PO TU loratadine 10 mg tablet 10 mg PO DAILY omeprazole 40 mg capsule,delayed release(DR/EC) 40 mg PO DAILY montelukast 10 mg tablet 10 mg PO QHS Discontinued aspirin 81 mg capsule 81 mg PO DAILY Other Ambulatory Orders: 12 Lead EKG (Routine) Timeframe: 20240223 Location: None Selected Ordered By: Dr. Cholo Napier Referrals / Follow Up: Physical,Therapy [Other] - 03/23/24 9:00 am Jena Johnson NP-C [Primary Care Provider] - Zelalem Crane PA-C [Med Staff - Adv Practice Prof] - 04/04/24 2:00 pm Disposition Disposition (needs filled in before D/C Order can be placed): Home, Self Care
[2024-03-20] MEDS: Aspirin 81 MG TAB.CHEW PO (08:05)
[2024-03-20] MEDS: metFORMIN (XR) 500 MG Tablet 2000 MG PO (08:05)
[2024-03-20] MEDS: Folic Acid 1 MG Tablet PO (08:05)
[2024-03-20] MEDS: HYDROcodone Bitartrate/Apap 5/325 Tablet PO (08:11)
[2024-03-20] MEDS: Losartan Potassium 100 MG Tablet PO (08:13)
[2024-03-20] MEDS: Nebivolol HCl 10 MG Tablet PO (08:13)
[2024-03-20] MEDS: Doxycycline 100 MG CAPSULE PO (08:14)
[2024-03-20] MEDS: Ergocalciferol 1.25 MG (50, 000 UNIT) Capsule PO (08:14)
[2024-03-20] MEDS: dilTIAZem CD 240 MG Capsule PO (08:14)
[2024-03-20] MEDS: Senna/Docusate Sodium 1 Tablet 2 TABLET PO (08:14)
[2024-03-20] MEDS: Loratadine 10 MG Tablet PO (08:15)
[2024-03-20] MEDS: Pantoprazole Sodium 40 MG Tablet PO (08:15)
[2024-03-20] MEDS: Famotidine 20 MG Tablet PO (08:15)
--- NOTE | 2024-03-20 09:48 | CASEMGMT ---
Order for DC placed this morning. Pt just recently finished with therapy. This RN CM to pt room to discuss DC planning. Pt states that PT went well and that she is ready for DC home today. Pt states that her niece will drive her home today. Pt states that she lives alone, however, her sister and her nieces will be helping the pt at home during her recovery. Pt states that he is established with OP therapy already and has an appt Tuesday. Pt is aware of the location and time. Pt denies any further needs and states that he feels safe with this plan moving forward. PLAN: DC Home today with OP Therapy
--- NOTE | 2024-03-20 09:57 | PHA.DC_ITS ---
Pharmacy [facility] has performed discharge medication reconciliation and counseling for this patient. 1. ASPIRIN 81MG PO BID X 4 WEEKS, THEN RESUME ONCE DAILY 2. DOXYCYCLINE 100MG PO BID X 14 DAYS 3. FERROUS SULFATE 325MG PO BID 4. FOLIC ACID 1MG PO BREAKFAST 5. NORCO 5/325 2T PO Q6H PRN PAIN 6. MELOXICAM 7.5MG PO BID 7. SENNA/DOCUSATE 2T PO BID UNTIL FIRST BM, THEN PRN CONSTIPATION The patient's discharge medication list was reviewed for discrepancies and discrepancies were resolved. The patient was counseled on the following discharge medications and changes in medications for homegoing were reviewed. The Reason for Use, instructions for use, and potential side effects were reviewed for all new medications. The patient's questions regarding all of their medications were answered. The patient was able to verbally demonstrate an understanding of their discharge medications. Patient counseled by pharmacy director Medications at Discharge Home Medications diltiazem HCl 120 mg capsule,24 hr,extended release 240 mg PO QDAY 02/21/24 dulaglutide 1.5 mg/0.5 mL subcutaneous pen injector (Trulicity) 1.5 mg subcut WE DIABETES 02/21/24 ergocalciferol (vitamin D2) 1,250 mcg (50,000 unit) capsule (Vitamin D2) 1,250 mcg PO TU 02/21/24 levothyroxine 50 mcg capsule 50 mcg PO DAILY 02/21/24 loratadine 10 mg tablet 10 mg PO DAILY 02/21/24 losartan 100 mg tablet 100 mg PO DAILY 02/21/24 metformin 500 mg tablet,extended release 24 hr 2,000 mg PO DAILY 02/21/24 montelukast 10 mg tablet 10 mg PO QHS 02/21/24 nebivolol 10 mg tablet (Bystolic) 10 mg PO DAILY 02/21/24 omeprazole 40 mg capsule,delayed release 40 mg PO DAILY 02/21/24 aspirin 81 mg capsule 81 mg PO BID 30 days #60 caps 03/20/24 doxycycline monohydrate 100 mg capsule 100 mg PO BID 14 days #28 caps 03/20/24 ferrous sulfate 325 mg (65 mg iron) tablet (FeroSul) 325 mg PO 1200,1700 #0 tabs 03/20/24 folic acid 1 mg tablet 1 mg PO BREAKFAST #0 tabs 03/20/24 hydrocodone-acetaminophen 5-325mg 5mg-325mg 2 tab PO Q6H PRN pain 7 days #42 tabs 03/20/24 meloxicam 7.5 mg tablet 7.5 mg PO BID 30 days #60 tabs 03/20/24 sennosides 8.6 mg-docusate sodium 50 mg tablet (Stool Softener-Stimulant Laxative) 2 tab PO BID #0 tabs 03/20/24
[2024-03-20] MEDS: Meloxicam 7.5 MG Tablet PO (10:36)
[2024-03-20] MEDS: Ferrous Sulfate 325 MG Tablet PO (12:35)
[2024-03-20 13:22] VITALS: BP 126/86; PULSE 90; RESP 17; TEMP 36.8; O2SAT 98
== END 2024-03-20 14:18 | disposition home or self-care (01) ==
LOC: SDC 09:27 → MS3 09:27
PROVIDERS: Anesthesiology; Admitting Provider Specialist; PCP Nurse Practitioner Family; Referring Provider Specialist; Visit Provider Specialist
PROC: (CPT 27284; principal; 2024-03-19 07:35)
DX: M16.11 Unilateral primary osteoarthritis, right hip (principal); E66.01 Morbid (severe) obesity due to excess calories; Z68.41 Body mass index [BMI] 40.0-44.9, adult; R73.03 Prediabetes; I10 Essential (primary) hypertension; K21.9 Gastro-esophageal reflux disease without esophagitis; E55.9 Vitamin D deficiency, unspecified; Z79.890 Hormone replacement therapy; J45.909 Unspecified asthma, uncomplicated; E03.9 Hypothyroidism, unspecified; Z79.82 Long term (current) use of aspirin; Z79.899 Other long term (current) drug therapy
CPT/HCPCS: 27130; 01214; 36415; 73501; 73502; 76000; 80048; 82040; 82962; 83036; 83735; 84443; 85025; 85027; 87081; 88305; 88311; 93005; 94668; 96365; 96366; 96375; 97110; 97116; 97161; 97166; 97535; 99221; 99252; C1776; J7120; A4216; G0378; G0463